=== PATIENT | male | born 1930 | race Two or more races ===

== ENCOUNTER 2018-03-27 06:52 | Outpatient (CLI) | payer OTHER | END 2018-03-27 07:17 | disposition home or self-care (01) | LOC: LAB 06:52 | DX: I70.0 Atherosclerosis of aorta (principal); E11.22 Type 2 diabetes mellitus with diabetic chronic kidney disease; E11.51 Type 2 diabetes mellitus with diabetic peripheral angiopathy without gangrene; I87.2 Venous insufficiency (chronic) (peripheral); E11.69 Type 2 diabetes mellitus with other specified complication; E78.01 Familial hypercholesterolemia; H26.492 Other secondary cataract, left eye; I11.9 Hypertensive heart disease without heart failure; R97.20 Elevated prostate specific antigen [PSA]; E55.9 Vitamin D deficiency, unspecified; R19.5 Other fecal abnormalities ==

== ENCOUNTER 2018-03-28 06:43 | Outpatient (CLI) | payer OTHER | END 2018-03-28 06:52 | disposition home or self-care (01) | LOC: LAB 06:43 | DX: R97.20 Elevated prostate specific antigen [PSA] (principal); E55.9 Vitamin D deficiency, unspecified; R19.5 Other fecal abnormalities; I70.1 Atherosclerosis of renal artery; E11.22 Type 2 diabetes mellitus with diabetic chronic kidney disease; E11.51 Type 2 diabetes mellitus with diabetic peripheral angiopathy without gangrene; I87.2 Venous insufficiency (chronic) (peripheral); E78.01 Familial hypercholesterolemia; H26.492 Other secondary cataract, left eye; I11.9 Hypertensive heart disease without heart failure; E03.8 Other specified hypothyroidism; N40.0 Benign prostatic hyperplasia without lower urinary tract symptoms ==

== ENCOUNTER 2018-06-18 07:01 | Outpatient (CLI) | payer OTHER | END 2018-06-18 07:05 | disposition home or self-care (01) | LOC: LAB 07:01 | DX: B35.1 Tinea unguium (principal); K40.90 Unilateral inguinal hernia, without obstruction or gangrene, not specified as recurrent; F39 Unspecified mood [affective] disorder; K59.01 Slow transit constipation; I70.0 Atherosclerosis of aorta; E11.51 Type 2 diabetes mellitus with diabetic peripheral angiopathy without gangrene; I73.89 Other specified peripheral vascular diseases; E11.69 Type 2 diabetes mellitus with other specified complication; E78.01 Familial hypercholesterolemia; E11.39 Type 2 diabetes mellitus with other diabetic ophthalmic complication; H26.492 Other secondary cataract, left eye; H35.363 Drusen (degenerative) of macula, bilateral; I11.9 Hypertensive heart disease without heart failure ==

== ENCOUNTER 2018-09-03 07:14 | Outpatient (CLI) | payer OTHER | END 2018-09-03 07:19 | disposition home or self-care (01) | LOC: LAB 07:14 | DX: I11.9 Hypertensive heart disease without heart failure (principal) ==

== ENCOUNTER 2018-10-15 08:33 | Outpatient (CLI) | payer OTHER | END 2018-10-15 08:40 | disposition home or self-care (01) | LOC: LAB 08:33 | DX: I10 Essential (primary) hypertension (principal); E11.9 Type 2 diabetes mellitus without complications ==

== ENCOUNTER 2019-01-01 07:11 | Outpatient (CLI) | payer OTHER | END 2019-01-01 07:23 | disposition home or self-care (01) | LOC: LAB 07:11 | DX: D64.89 Other specified anemias (principal); I11.9 Hypertensive heart disease without heart failure; E78.01 Familial hypercholesterolemia; R80.8 Other proteinuria; R19.5 Other fecal abnormalities; Z13.29 Encounter for screening for other suspected endocrine disorder; N39.0 Urinary tract infection, site not specified; Z12.5 Encounter for screening for malignant neoplasm of prostate; D51.8 Other vitamin B12 deficiency anemias; E55.9 Vitamin D deficiency, unspecified ==

== ENCOUNTER 2019-01-01 14:19 | Outpatient (CLI) | payer OTHER | END 2019-01-01 14:50 | disposition home or self-care (01) | LOC: LAB 14:19 | DX: Z13.29 Encounter for screening for other suspected endocrine disorder (principal); D64.89 Other specified anemias; I11.9 Hypertensive heart disease without heart failure; E78.01 Familial hypercholesterolemia; R80.8 Other proteinuria; R19.5 Other fecal abnormalities; N39.0 Urinary tract infection, site not specified; D51.8 Other vitamin B12 deficiency anemias; E55.9 Vitamin D deficiency, unspecified ==

== ENCOUNTER 2019-04-30 06:41 | Outpatient (CLI) | payer OTHER | END 2019-04-30 07:13 | disposition home or self-care (01) | LOC: LAB 06:41 | DX: E11.69 Type 2 diabetes mellitus with other specified complication (principal); I11.9 Hypertensive heart disease without heart failure ==

== ENCOUNTER → 2019-07-29 06:45 | Outpatient (CLI) | payer OTHER | END | disposition home or self-care (01) | LOC: LAB 06:45 | DX: B35.1 Tinea unguium (principal); E11.620 Type 2 diabetes mellitus with diabetic dermatitis; K40.90 Unilateral inguinal hernia, without obstruction or gangrene, not specified as recurrent; F39 Unspecified mood [affective] disorder; K59.01 Slow transit constipation; I70.0 Atherosclerosis of aorta; E11.51 Type 2 diabetes mellitus with diabetic peripheral angiopathy without gangrene; Z79.84 Long term (current) use of oral hypoglycemic drugs; E11.69 Type 2 diabetes mellitus with other specified complication; E78.01 Familial hypercholesterolemia; E11.39 Type 2 diabetes mellitus with other diabetic ophthalmic complication; H26.492 Other secondary cataract, left eye; H35.363 Drusen (degenerative) of macula, bilateral; I11.9 Hypertensive heart disease without heart failure ==

== ENCOUNTER 2019-12-04 07:04 | Outpatient (CLI) | payer OTHER | END 2019-12-04 07:10 | disposition home or self-care (01) | LOC: LAB 07:04 | DX: I11.9 Hypertensive heart disease without heart failure (principal); E11.69 Type 2 diabetes mellitus with other specified complication; R19.5 Other fecal abnormalities; E03.8 Other specified hypothyroidism; D64.89 Other specified anemias; E78.00 Pure hypercholesterolemia, unspecified ==

== ENCOUNTER 2019-12-05 09:24 | Outpatient (CLI) | payer OTHER | END 2019-12-05 15:00 | disposition home or self-care (01) | LOC: LAB 09:24 | DX: E11.69 Type 2 diabetes mellitus with other specified complication (principal); I11.9 Hypertensive heart disease without heart failure; R19.5 Other fecal abnormalities; E03.8 Other specified hypothyroidism; D64.89 Other specified anemias; E78.00 Pure hypercholesterolemia, unspecified ==

== ENCOUNTER → 2020-03-23 07:29 | Outpatient (CLI) | payer OTHER | END | disposition home or self-care (01) | LOC: LAB 07:29 | PROVIDERS: ATTEND Internal Medicine | DX: D72.820 Lymphocytosis (symptomatic) (principal); D69.49 Other primary thrombocytopenia; I11.9 Hypertensive heart disease without heart failure; K76.89 Other specified diseases of liver ==